=== PATIENT | male | born 1985 | race Caucasian/White ===

== ENCOUNTER 2025-02-11 16:44 | Emergency (ER) | payer SELFPAY ==
[~2025-02-11] VITALS: Ht 167.6 cm; Wt 80.0 kg
[~2025-02-11 16:44] MED LIST: AMOX1TAB16 MT; IBUP-1455 MT; NALO4SPR BOTHNSTRLS
[2025-02-11 16:50] VITALS: O2SAT 100
[2025-02-11 19:05] LABS: BASOPHILS % 0.3 % (0.0-2.0); EOSINOPHILS % 0.9 % (0.0-5.0); HEMATOCRIT. 39.0 % (42.0-52.0); HEMOGLOBIN. 13.3 g/dL (14.0-18.0); LYMPHOCYTES % 26.3 % (20.0-50.0); MEAN PLATELET VOLUME 7.9 fl (7.4-10.4); MONOCYTES % 3.9 % (2.0-8.0); NEUTROPHILS % 68.6 % (40.0-76.0); PLATELET 297 x1000/uL (130-400); RED BLOOD CELL COUNT 4.10 mill/uL (4.7-6.1); RED CELL DISTRIBUTION WIDTH 13.4 % (11.6-14.6)
[2025-02-11 19:29] LABS: CREATININE 0.8 mg/dL (0.6-1.3)
[2025-02-11 19:30] LABS: PROTEIN TOTAL 7.1 g/dL (6.0-8.3); UREA NITROGEN BLOOD 5 mg/dL (9-23)
[2025-02-11 19:31] LABS: ASPARTATE AMINOTRANSFERASE 90 IU/L (<34); TROPONIN I HIGH SENSITIVITY 41 ng/L (3.0-53)
[2025-02-11 19:32] LABS: BILIRUBIN DIRECT 0.3 mg/dL (<=3.0); BILIRUBIN TOTAL 0.8 mg/dL (0.1-1.0)
[2025-02-11 19:34] LABS: ETHANOL BLOOD 300 mg/dL (<10)
[2025-02-11] MEDS: MAGNESIUM/ALUMINUM HYDROXIDE/SIMETHICONE 30ML UDC PO ONE (21:31)
[2025-02-11] MEDS: FAMOTIDINE 20MG TABLET PO ONE (21:31)
[2025-02-11] MEDS: ONDANSETRON 4MG ODT PO ONE (21:32)
[2025-02-11] MEDS: FAMOTIDINE 20MG TABLET PO SCH (22:01)
[2025-02-11] MEDS: MAGNESIUM/ALUMINUM HYDROXIDE/SIMETHICONE 30ML UDC PO SCH (22:01)
[2025-02-11] MEDS: ONDANSETRON 4MG ODT PO SCH (22:01)
[2025-02-12] MEDS: ACETAMINOPHEN 325MG TABLET PO ONE (00:07)
[2025-02-12] MEDS: LORAZEPAM 0.5MG TABLET PO ONE (00:07)
[2025-02-12 01:05] VITALS: BP 104/70; PULSE 111; RESP 14; TEMP 37.2; O2SAT 96
[2025-02-12] MEDS ORDERED: ACET-2708 MT (03:04)
== END 2025-02-12 01:10 | disposition home or self-care (01) ==
LOC: ER 16:44
DX: F10.129 Alcohol abuse with intoxication, unspecified (principal); Z79.899 Other long term (current) drug therapy; Y90.8 Blood alcohol level of 240 mg/100 ml or more
CPT/HCPCS: 80076; 80048; 80320; 83690; 85025; 84484; 36415; 71045; 93005 ×2; 99285; Q0162; Z7610 ×3; G0480

== ENCOUNTER 2025-02-12 01:20 | Emergency (ER) | payer SELFPAY ==
[~2025-02-12] VITALS: Ht 175.3 cm; Wt 73.0 kg
[2025-02-12 01:30] VITALS: O2SAT 97
[2025-02-12 01:51] LABS: PLATELET 308 x1000/uL (130-400); RED BLOOD CELL COUNT 4.14 mill/uL (4.7-6.1); RED CELL DISTRIBUTION WIDTH 13.4 % (11.6-14.6)
[2025-02-12 02:05] LABS: CREATININE 0.9 mg/dL (0.6-1.3); UREA NITROGEN BLOOD 6 mg/dL (9-23)
[2025-02-12 02:06] LABS: PROTEIN TOTAL 7.3 g/dL (6.0-8.3)
[2025-02-12 02:07] LABS: ASPARTATE AMINOTRANSFERASE 89 IU/L (<34); BILIRUBIN DIRECT 0.3 mg/dL (<=3.0); BILIRUBIN TOTAL 1.0 mg/dL (0.1-1.0); TROPONIN I HIGH SENSITIVITY 39 ng/L (3.0-53)
[2025-02-12] MEDS: KETOROLAC 30MG/ML VIAL IM ONE (02:53)
[2025-02-12] MEDS ORDERED: ACET-2708 MT (03:04)
[2025-02-12 03:31] VITALS: BP 127/85; PULSE 98; RESP 16; TEMP 36.8; O2SAT 100
== END 2025-02-12 03:34 | disposition home or self-care (01) ==
LOC: ER 01:20
DX: R07.9 Chest pain, unspecified (principal)
CPT/HCPCS: 99285; 71045; 80076; 80048; 85027; 84484; 36415; 93005; 96372; J1885